=== PATIENT | female | born 1990 | race Caucasian/White ===

== ENCOUNTER 2016-02-24 16:02 | Emergency (ER) | payer MEDICAID ==
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
[2016-02-24] MEDS ORDERED: ONDANSETRON 4 MG/2 ML VIAL ONE (16:40)
[2016-02-24] MEDS ORDERED: NS 1,000 ML IV ONE ×2 (16:45→17:57)
[2016-02-24] MEDS ORDERED: ONDANSETRON 4 MG/2 ML VIAL IVP ONE (16:45)
[2016-02-24] MEDS ORDERED: LORazepam 2 MG/ML INJ IVP ONE ×2 (17:28→18:35)
[2016-02-24 17:47] LABS: % IMMATURE GRANULYOCYTES 0.5 % (0.0-1.1); ABSOLUTE IMMATURE GRANULOCYTES 0.08 10^3/uL (0.00-0.10); ADD DIFF? NO; ADD MORPH? NO; ADD SCAN? NO; ATYPICAL LYMPHOCYTE FLAG 30 (0-99); FRAGMENT RBC FLAG 0 (0-99); HEMATOCRIT 47.5 % (38.0-47.0); HEMOGLOBIN 15.5 g/dL (12.6-16.3); LEFT SHIFT FLG 0 (0-99); LIPEMIA HEMOLYSIS FLAG 80 (0-99); MEAN CELL HEMOGLOBIN 32.8 pg (27.9-34.1); MEAN CELL HEMOGLOBIN CONCENTR. 32.6 g/dL (32.4-36.7); MEAN CELL VOLUME 100.4 fL (81.5-99.8); PLATELET CLUMPS FLAG 10 (0-99); PLATELET COUNT 357 10^3/uL (150-400); RED BLOOD CELL COUNT 4.73 10^6/uL (4.18-5.33); RED CELL DISTRIBUTION WIDTH 11.9 % (11.5-15.2)
[2016-02-24 17:49] LABS: ALANINE AMINOTRANSFERASE 26 IU/L (9-52); ALBUMIN 4.9 g/dL (3.5-5.0); ALKALINE PHOSPHATASE 51 IU/L (38-126); ANION GAP 28 mEq/L (8-16); BILIRUBIN,TOTAL 0.8 mg/dL (0.1-1.4); BILIRUBIN-CONJUGATED 0.2 mg/dL (0.0-0.5); BILIRUBIN-UNCONJUGATED 0.6 mg/dL (0.0-1.1); CALCIUM 9.4 mg/dL (8.5-10.4); CARBON DIOXIDE 15 mEq/l (22-31); CHLORIDE 101 mEq/L (97-110); CREATININE 0.8 mg/dL (0.6-1.0); GLOMERULAR FILTRATION RATE > 60; GLUCOSE 113 mg/dL (70-100); POTASSIUM 3.4 mEq/L (3.5-5.2); SODIUM 144 mEq/L (134-144); TOTAL PROTEIN 8.3 g/dL (6.3-8.2)
[2016-02-24 17:56] LABS: ASPARTATE AMINOTRANSFERASE 62 IU/L (14-46)
[2016-02-24] MEDS ORDERED: LORazepam 2 MG/ML INJ ONE (18:34)
[2016-02-24 19:30] VITALS: BP 131/87; PULSE 93; RESP 18; TEMP 98.6; O2SAT 94
== END 2016-02-24 19:29 | disposition home or self-care (01) ==
LOC: EDUNIT#
DX: G40.909 Epilepsy, unspecified, not intractable, without status epilepticus (principal); F13.239 Sedative, hypnotic or anxiolytic dependence with withdrawal, unspecified; Z87.891 Personal history of nicotine dependence
CPT/HCPCS: 80305; 96374; J2405

== ENCOUNTER 2016-04-10 10:39 | Emergency (ER) | payer MEDICAID ==
[2016-04-10 10:49] VITALS: RESP 16; TEMP 97.7
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
[2016-04-10 11:26] LABS: % IMMATURE GRANULYOCYTES 0.5 % (0.0-1.1); ABSOLUTE IMMATURE GRANULOCYTES 0.03 10^3/uL (0.00-0.10); ADD DIFF? NO; ADD MORPH? NO; ADD SCAN? NO; ATYPICAL LYMPHOCYTE FLAG 0 (0-99); FRAGMENT RBC FLAG 0 (0-99); HEMATOCRIT 44.2 % (38.0-47.0); HEMOGLOBIN 15.4 g/dL (12.6-16.3); LEFT SHIFT FLG 0 (0-99); LIPEMIA HEMOLYSIS FLAG 90 (0-99); MEAN CELL HEMOGLOBIN 32.1 pg (27.9-34.1); MEAN CELL HEMOGLOBIN CONCENTR. 34.8 g/dL (32.4-36.7); MEAN CELL VOLUME 92.1 fL (81.5-99.8); MEAN PLATELET VOLUME 9.2 fL (8.7-11.7); PLATELET CLUMPS FLAG 10 (0-99); PLATELET COUNT 316 10^3/uL (150-400); RED CELL DISTRIBUTION WIDTH 11.4 % (11.5-15.2)
[2016-04-10] MEDS ORDERED: ONDANSETRON 4 MG/2 ML VIAL ONE (11:33)
[2016-04-10] MEDS ORDERED: HYDROmorphONE/DILAUDID 1 MG/ML SYR ONE (11:33)
[2016-04-10 11:34] LABS: COLOR PALE YELLOW; LEUKOCYTE ESTERASE,URINE NEGATIVE (NEGATIVE); NITRITE,URINE NEGATIVE (NEGATIVE)
[2016-04-10] MEDS ORDERED: ONDANSETRON 4 MG/2 ML VIAL IVP ONE (11:37)
[2016-04-10] MEDS ORDERED: HYDROmorphONE/DILAUDID 1 MG/ML SYR IVP ONE (11:37)
[2016-04-10 11:38] LABS: BACTERIA TRACE /hpf (NONE SEEN)
[2016-04-10 11:46] LABS: ALANINE AMINOTRANSFERASE 44 IU/L (9-52); ALBUMIN 4.7 g/dL (3.5-5.0); ALKALINE PHOSPHATASE 54 IU/L (38-126); ANION GAP 11 mEq/L (8-16); ASPARTATE AMINOTRANSFERASE 41 IU/L (14-46); BILIRUBIN,TOTAL 0.6 mg/dL (0.1-1.4); BILIRUBIN-CONJUGATED 0.4 mg/dL (0.0-0.5); BILIRUBIN-UNCONJUGATED 0.2 mg/dL (0.0-1.1); CALCIUM 9.9 mg/dL (8.5-10.4); CARBON DIOXIDE 25 mEq/l (22-31); CHLORIDE 102 mEq/L (97-110); CREATININE 0.7 mg/dL (0.6-1.0); GLOMERULAR FILTRATION RATE > 60; GLUCOSE 76 mg/dL (70-100); POTASSIUM 3.7 mEq/L (3.5-5.2); SODIUM 138 mEq/L (134-144); TOTAL PROTEIN 8.4 g/dL (6.3-8.2)
[2016-04-10] MEDS ORDERED: IOPAMIDOL (ISOVUE-300) 100 ML BTL IV ONE (13:43)
[2016-04-10 15:04] VITALS: BP 115/72; PULSE 76; O2SAT 95
== END 2016-04-10 15:04 | disposition home or self-care (01) ==
DX: K59.00 Constipation, unspecified (principal); Z87.891 Personal history of nicotine dependence
CPT/HCPCS: 96374; J1170; J2405; Q9967

== ENCOUNTER 2016-08-03 11:57 | Emergency (ER) | payer MEDICAID ==
[2016-08-03 12:02] VITALS: TEMP 97.9; O2SAT 96
--- NOTE | 2016-08-03 13:33 | EDPHY ---
H & P Smoking Status: Former smoker Time Seen by Provider: 08/03/16 13:29 HPI/ROS: CHIEF COMPLAINT: Vaginal cyst HISTORY OF PRESENT ILLNESS: This is a 25-year-old female presenting to the emergency department complaining of 2 small painful bumps on her labia. Patient states she has had 1 of a move for over a year her her cigarette packer is aware of that, but over the past few days she has noticed a smaller one with increased tenderness. Patient does shave her genital area, does not know if this is an ingrown hair that is causing swelling and pain. Denies any vaginal discharge, no fever no chills REVIEW OF SYSTEMS: Constitutional: No fever, no chills. Eyes: No discharge. ENT: No sore throat. Cardiovascular: No chest pain, no palpitations. Respiratory: No cough, no shortness of breath. Gastrointestinal: No abdominal pain, no vomiting. Genitourinary: No hematuria. Two small lumps left labia Musculoskeletal: No back pain. Skin: No rashes. Neurological: No headache. (Lisa Barron) Physical Exam: General Appearance: Alert and no distress. Eyes: Pupils equal and round no injection. Respiratory: Chest is nontender, lungs are clear to auscultation. Cardiac: regular rate and rhythm Gastrointestinal: Abdomen is soft and nontender, no masses, bowel sounds normal. Genitourinary: Genital area shaved, small Bartholin's cyst noted to left labia majora mild swelling, tender on palpation no abscess no induration Musculoskeletal: Neck is supple and nontender. Extremities: full range of motion and are nontender. Skin: No rashes or lesions. (Lisa Barron) Constitutional: Initial Vital Signs Temperature (C) 36.6 C 08/03/16 12:00 Heart Rate 84 08/03/16 12:00 Respiratory Rate 17 08/03/16 12:00 Blood Pressure 117/78 08/03/16 12:00 O2 Sat (%) 96 08/03/16 12:00 O2 Delivery Mode Room Air Allergies/Adverse Reactions: amoxicillin Allergy (Verified 08/03/16 11:59) cefaclor [From Ceclor] Allergy (Verified 08/03/16 11:59) Home Medications: Medication Instructions Recorded Levonorgestrel-Ethin Estradiol 1 each PO DAILY 09/27/15 [Aviane] Sulfamethox/Tmp 800/160 mg 1 tab PO BID #14 tab 08/03/16 [Bactrim Ds] Medical Decision Making ED Course/Re-evaluation: Discussed ED plan of care: Bartholin's cyst no I&D needed at this time, discussed this bath hot compress to the area, antibiotics prescribed. Discharge home---> stable, discussed all discharge instructions (Lisa Barron) CLIENT CARE SPECIALIST (Martha Saeed) Differential Diagnosis: Other differential diagnosis considered but not limited to labial abscess, vaginal discharge, and vulval vaginitis (Lisa Barron) Departure - Departure Disposition: Home, Routine, Self-Care Clinical Impression: Bartholin cyst Condition: Good Instructions: Bartholin Cyst (ED) Additional Instructions: 1. Warm water Sitz bath, you can also use a warm compress to the area 2. I would recommend no shaving of the general area as you can neck or cut the area worsen and infection 3. Take all antibiotics as prescribed 4. Follow up with your cigarette packer for further evaluation. For any worsening swelling pain fever chills drainage return to the ER Referrals: Shelley Ortiz NP [Primary Care Provider] - As per Instructions Stand Alone Forms: Work Excuse Prescriptions: Sulfamethox/Tmp 800/160 mg [Bactrim Ds] 1 tab PO BID #14 tab
[2016-08-03 13:52] VITALS: BP 116/68; PULSE 82; RESP 16
== END 2016-08-03 13:52 | disposition home or self-care (01) ==
DX: N75.0 Cyst of Bartholin's gland (principal); Z87.891 Personal history of nicotine dependence